=== PATIENT | female | born 1940 | race Caucasian/White ===

== ENCOUNTER 2016-04-04 08:55 | Emergency (ER) | payer MEDICARE, OTHER ==
[2016-04-04 10:05] LABS: ABSOLUTE NEUTROPHIL COUNT 4.8 K/mm3 (1.8-7.7); BASO # 0.1 K/mm3 (0.0-0.2); BASO % 0.8 % (0.2-1.0); EOS # 0.2 (0.0-0.5); EOS % 2.5 % (0.9-2.9); HEMATOCRIT 47.8 % (37.0-47.0); HEMOGLOBIN 15.6 gm/l (12.0-16.0); IMM NEUT% 0.1 % (0-1); LYMPH # 2.3 (1.0-4.8); MEAN CELL VOLUME 93.2 fl (81.0-99.0); MEAN CORPUSCULAR HEMOGLOBIN 30.4 pg (27.0-31.0); MEAN CORPUSCULAR HGB CONC 32.6 g/dl (33.0-37.0); MEAN PLATELET VOLUME 9.6 fl (7.4-10.4); MONO # 0.4 (0.0-0.8); MONO % 4.7 % (4-12); NEUT % 61.9 % (43-75); PLATELET COUNT 364 K/mm3 (130-400); RED CELL DISTRIBUTION WIDTH 11.5 % (11.5-14.5)
--- NOTE | 2016-04-04 10:19 | RAD ---
04/04/2016 10:14 AM CHEST - 2 VIEWS History: Chest pain and shortness of breath Comparison: 03/27/2010 Findings: Two views of the chest are obtained. The lungs are clear with out effusion or pneumothorax. The cardiomediastinal silhouette is unremarkable.. The osseous structures are intact.. Surgical clips are present in the right axilla. IMPRESSION: No acute intrathoracic process.
[2016-04-04 10:29] LABS: URINE BILIRUBIN NEGATIVE (NEGATIVE); URINE BLOOD TRACE (NEGATIVE); URINE GLUCOSE (UA) NEGATIVE (NEGATIVE); URINE LEUKOCYTE ESTERASE NEGATIVE (NEGATIVE); URINE NITRITE NEGATIVE (NEGATIVE); URINE PROTEIN 1+ (NEGATIVE); URINE UROBILINOGEN NORMAL (0-1 mg/dl)
[2016-04-04 10:30] LABS: URINE APPEARANCE CLEAR; URINE COLOR YELLOW
[2016-04-04 10:39] LABS: ALB/GLOB RATIO 1.3 (>1.0); ALBUMIN 4.6 gm/dL (3.5-5.7); CALCIUM 9.8 mg/dL (8.6-10.3)
[2016-04-04 10:46] LABS: URINE BACTERIA 0; URINE WBC NEG /hpf
--- NOTE | 2016-04-04 12:10 | CT ---
HEAD W/O CON: 04/04/2016 11:39 AM CLINICAL HISTORY: Dizziness, weakness.. COMPARISON: 07/23/2012 TECHNIQUE: Contiguous axial 5 mm images from skull base to the vertex were obtained without IV contrast. Sagittal and coronal reformations with bone algorithm images were also obtained at this time. CT DI:: 51.7 DLP: 913.1 FINDINGS: Infarct: None Extra axial spaces: Normal in size and morphology for the patient's age. Hemorrhage: None. Ventricular system: Normal in size and morphology for the patient's age. Basal cisterns: Normal. Cerebral parenchyma: Normal. Midline shift: None. Cerebellum: Normal. Brainstem: Normal. OTHER: Calvarium: Normal. Vascular system: Normal. Visualized Paranasal sinuses and Mastoid air cells: Clear. Visualized Orbits and regional soft tissues: Normal. IMPRESSION: No acute intracranial process. Report was uploaded to the electronic medical record at approximately 1206 hours on 04/04/2016
== END 2016-04-04 12:39 | disposition home or self-care (01) ==
LOC: ED 08:55
DX: R53.1 Weakness (principal); R51 Headache; I10 Essential (primary) hypertension

== ENCOUNTER 2016-05-24 06:48 | Day surgery (SDC) | payer MEDICARE, OTHER ==
[~2016-05-24 06:48] MED LIST: FENTANYL 250 MCG/5 ML AMP IV PRN; IV START KIT ONE; LACTATED RINGERS 1,000 ML IV SCH; LACTATED RINGERS 1,000 ML ONE; LIDOCAINE Viscous 2% 15 ML UDCUP PO PRN; MIDAZOLAM HCL 5 MG/5 ML VIAL IV PRN
[2016-05-24] MEDS ORDERED: MIDAZOLAM HCL 5 MG/5 ML VIAL ONE (07:41)
[2016-05-24] MEDS ORDERED: FENTANYL 250 MCG/5 ML AMP ONE (07:41)
[2016-05-24] MEDS ORDERED: LIDOCAINE Viscous 2% 15 ML UDCUP ONE (07:41)
[2016-05-24 12:40] LABS: HELICOBACTER PYLORII DETECTION NEGATIVE (NEGATIVE)
--- NOTE | 2016-05-28 14:15 | SURGPATH ---
[facility] [address] [place] [id number] Patient Name: RAYMON BARRIGA MR#: [id number] : 1940 Gender: F Specimen #: [id number] Collected: 05/24/2016 Received: 05/25/2016 Reported: 05/28/2016 Submitting Phys: MARIBETH MENSAH Copy To Phys: [facility] JUANITA JOHANSEN Clinical History / Pre-Operative Diagnosis: EPIGASTRIC PAIN; DYSPHAGIA; HISTORY OF COLON POLYPS Specimen Source / Surgical Procedure Performed: #1-DUODENAL BIOPSY; #2-ANTRAL BIOPSY Interpretation: 1. DUODENUM, BIOPSY: - NO PATHOLOGIC DIAGNOSIS 2. GASTRIC ANTRUM, BIOPSY: - CHRONIC GASTRITIS Electronically Signed Out Saad Mistry M.D. Gross Description: #1 The specimen is received in a formalin filled container labeled with the patient's name and "duodenal biopsy". Three ellis biopsies are each 0.3 cm. Totally embedded in cassette #1. #2 The specimen is received in a formalin filled container labeled with the patient's name and "antral biopsy". Two koenig-ellis biopsies are 0.3 and 0.5 cm. Totally embedded in cassette #2. Mickey Griffith Microscopic Description: 1. Levels reveal small intestinal mucosa with a normal villous architecture. Ulceration, acute inflammation, granulomas, intraepithelial lymphocytosis, Giardia organisms, dysplasia and malignancy are not seen. 2. Levels reveal fragments of gastric mucosa with a normal glandular architecture. The lamina propria is mildly expanded by increased numbers of chronic inflammatory cells. Ulceration, acute inflammation, dysplasia and malignancy are not seen. A Helicobacter immunostain is performed revealing absence of organisms. (Analyte-specific reagents (ASR) are used in many laboratory tests necessary for standard medical care and generally do not require FDA approval. This test was developed and its performance characteristics determined by [facility]. It has not been cleared or approved by the [place]. Food and Drug Administration. [employer] [facility] is certified under the Clinical Laboratory Improvement Amendments of 1988 as qualified to perform high complexity clinical laboratory testing. All controls stain as expected.) 1: 10566 2: 71103, 60642 K29.50
== END 2016-05-24 08:48 | disposition home or self-care (01) ==
LOC: SDC 06:48
PROVIDERS: ATTEND Internal Medicine Gastroenterology
PROC: 0DB98ZX Excision of Duodenum, Via Natural or Artificial Opening Endoscopic, Diagnostic (ICD-10-PCS; principal; 2016-05-24)
PROC: 0DB68ZX Excision of Stomach, Via Natural or Artificial Opening Endoscopic, Diagnostic (ICD-10-PCS; 2016-05-24)
PROC: 0DJD8ZZ Inspection of Lower Intestinal Tract, Via Natural or Artificial Opening Endoscopic (ICD-10-PCS; 2016-05-24)
DX: Z12.11 Encounter for screening for malignant neoplasm of colon (principal); Z86.010 Personal history of colon polyps; K29.50 Unspecified chronic gastritis without bleeding; I10 Essential (primary) hypertension; Z88.0 Allergy status to penicillin; Z88.8 Allergy status to other drugs, medicaments and biological substances; Z87.891 Personal history of nicotine dependence
CPT/HCPCS: 43239; G0105